=== PATIENT | female | born 1985 | race Two or more races ===

== ENCOUNTER 2018-08-29 12:15 | Inpatient (IN) | payer OTHER ==
[~2018-08-29] VITALS: Ht 162.6 cm; Wt 66.2 kg
[2018-09-05] MEDS ORDERED: PRENATAL TABLE1 EAC3 PO (10:54)
[2018-09-05] MEDS ORDERED: IODOSORB40 GM PO (10:55)
[2018-09-07] MEDS ORDERED: ACETAMINOPHEN500 M1 PO (11:52)
[2018-09-07] MEDS ORDERED: IBUPROFEN800 MG PO (11:53)
== END 2018-09-07 13:48 | disposition home or self-care (01) | DRG 807 ==
LOC: LDR 09-05 10:15 → OB/GYN 09-06 07:41
PROVIDERS: ADMIT Obstetrics & Gynecology
PROC: 10E0XZZ Delivery of Products of Conception, External Approach (ICD-10-PCS; principal; 2018-09-05)
PROC: 10907ZC Drainage of Amniotic Fluid, Therapeutic from Products of Conception, Via Natural or Artificial Opening (ICD-10-PCS; 2018-09-05)
PROC: 3E033VJ Introduction of Other Hormone into Peripheral Vein, Percutaneous Approach (ICD-10-PCS; 2018-09-05)
PROC: 4A1HXCZ Monitoring of Products of Conception, Cardiac Rate, External Approach (ICD-10-PCS; 2018-09-05)
PROC: 0KQM0ZZ Repair Perineum Muscle, Open Approach (ICD-10-PCS; 2018-09-05)
DX: O70.1 Second degree perineal laceration during delivery (principal); Z37.0 Single live birth; Z3A.39 39 weeks gestation of pregnancy